=== PATIENT | male | born 1935 | race Hispanic/Latino ===

== ENCOUNTER 2017-05-22 06:15 | Day surgery (SDC) | payer MEDICARE ==
[~2017-05-22 06:15] MED LIST: ANCEF/STERILE WATER 2 GM/20 ML 2 GM/20 ML SYRINGE IV NR; NACL 0.9% 1000 ML 1,000 ML IV SCH
[2017-05-22 07:05] LABS: Basophils # (Auto) 0.1 K/mm3 (0.0-0.1); Basophils % (Auto) 0.9 % (0.0-1.8); Eosinophils # (Auto) 0.7 K/mm3 (0.0-0.4); Eosinophils % (Auto) 9.3 % (0.0-4.3); Hematocrit 36.4 % (35.5-45.6); Hemoglobin 11.7 gm/dl (11.8-15.2); Lymphocytes # (Auto) 1.5 K/mm3 (1.2-5.4); Lymphocytes % (Auto) 21.6 % (13.4-35.0); Mean Corpuscular HGB Conc 32 % (32-34); Mean Corpuscular Hemoglobin 26 pg (28-32); Mean Corpuscular Volume 81 fl (84-94); Monocytes # (Auto) 0.6 K/mm3 (0.0-0.8); Monocytes % (Auto) 8.5 % (0.0-7.3); Platelet Count 259 K/mm3 (140-440); Red Blood Count 4.49 M/mm3 (3.65-5.03); Red Cell Distribution Width 17.9 % (13.2-15.2)
[2017-05-22 07:16] LABS: INR 1.04 (0.87-1.13); Partial Thromboplastin Time 35.7 Sec. (24.2-36.6)
[2017-05-22 07:46] LABS: Calcium 8.9 mg/dL (8.4-10.2)
[2017-05-22] MEDS ORDERED: HALFPRIN EC PO ONE (10:30)
[2017-05-22] MEDS ORDERED: PLAVIX PO ONE (10:30)
[2017-05-22] MEDS ORDERED: HEPARIN/NS 5000 UNIT/500ML(CATH LAB) 1,500 ML IR ONE (12:24)
[2017-05-22] MEDS ORDERED: XYLOCAINE 2% INFILTRATI ONE (12:25)
[2017-05-22] MEDS ORDERED: ANCEF/STERILE WATER 2 GM/20 ML 2 GM/20 ML SYRINGE IV ONE (12:25)
[2017-05-22] MEDS ORDERED: NACL 0.9% 1000 ML 0 ML ONE (12:25)
[2017-05-22] MEDS: SUBLIMAZE ONE ×6 (12:42→14:37)
[2017-05-22] MEDS: VERSED ONE ×6 (12:42→14:37)
[2017-05-22] MEDS: HEPARIN 10,000 UNITS/10 ML ONE ×2 (13:01→13:49)
[2017-05-22] MEDS ORDERED: NACL 0.9% 500 ML 500 ML ONE (13:17)
[2017-05-22] MEDS ORDERED: HEPARIN/NS 5000 UNIT/500ML(CATH LAB) 500 ML IR ONE (13:33)
[2017-05-22 16:40] VITALS: BP 115/59
--- NOTE | 2017-05-22 17:09 | Short Stay Summary ---
Short Stay Documentation Date of service: 05/22/17 Narrative H&P: 81 year old male with rest pain at night with ischemia of the right foot. - History Principal diagnosis: rest pain with PVD H&P: obtained from office - Allergies and Medications Current Medications: Allergies Tbokser-Jgx-Hke Reductase Inhibitor Adverse Reaction (Intermediate, Unverified 05/22/17 06:27) Rash Home Medications Medication Instructions Recorded Confirmed Last Taken Type Apixaban [Eliquis] 5 mg PO DAILY 05/22/17 05/22/17 05/19/17 History Aspirin [Aspirin EC] 325 mg PO QDAY 05/22/17 05/22/17 05/19/17 History Citalopram [celeXA] 10 mg PO DAILY 05/22/17 05/22/17 05/21/17 History Clopidogrel Bisulfate [Clopidogrel] 75 mg PO QDAY 05/22/17 05/22/17 05/19/17 History Donepezil [Aricept] 5 mg PO HS 05/22/17 05/22/17 05/21/17 History Finasteride [Proscar] 5 mg PO QDAY 05/22/17 05/22/17 05/21/17 History Gabapentin [Neurontin] 600 mg PO TID 05/22/17 05/22/17 05/21/17 History Gabapentin [Neurontin] 600 mg PO TID 05/22/17 05/22/17 05/21/17 History Insulin Aspart [NovoLOG 100 4 - 10 units SC TIDAC 05/22/17 05/22/17 Unknown History UNITS/ML VIAL] Insulin Glargine [Lantus VIAL] 10 units SQ QHS 05/22/17 05/22/17 05/21/17 History Metoprolol Succinate [Toprol Xl] 25 mg PO QDAY 05/22/17 05/22/17 05/21/17 History Tamsulosin [Flomax] 0.4 mg PO HS 05/22/17 05/22/17 05/21/17 History glyBURIDE [Glyburide] 5 mg PO DAILY 05/22/17 05/22/17 05/21/17 History traMADol [Ultram] 50 mg PO Q8H PRN 05/22/17 05/22/17 Unknown History Active Medications Cefazolin Sodium (Ancef/Sterile Water 2 Gm/20 Ml) 2 gm in 20 mls @ 80 mls/hr IV PREOP NR; Protocol Stop: 05/22/17 23:59 Sodium Chloride (Nacl 0.9% 1000 Ml) 1,000 mls @ 42 mls/hr IV DIRECT JOSE Stop: 05/22/17 23:59 Last Admin: 05/22/17 07:00 Dose: 258 mls/hr - Physical exam General appearance: mild distress (right foot discomfort) Lungs: Normal air movement Extremities: no pulses intact, normal temperature, normal color - Brief post op/procedure progress note Date of procedure: 05/22/17 Pre-op diagnosis: PVD with rest pain Post-op diagnosis: same Procedure: Revasc of the RLE Anesthesia: local (w/ conscious sedation) Surgeon: BENIGNO RICARDO Estimated blood loss: minimal Condition: stable - Hospital course Hospital course: Ready for discharge in 2 hrs. Keep pressure dressing on. Will remove at nursing facility. Tolerated procedure well. - Disposition Condition at discharge: Stable Disposition: DC/[place]-03 SNF [facility] CERT - Discharge Diagnoses (1) PVD (peripheral vascular disease) Status: Acute Short Stay Discharge Plan Activity: advance as tolerated Weight Bearing Status: Weight Bear as Tolerated Diet: diabetic Special Instructions: other (continue asprin and plavix ; resume eliquis on 05/24 ; remove pressure dressing on 05/23/17 in AM) Follow up with: EDUARDO MONTELONGO MD [Primary Care Provider] - 7 Days Forms: Post Arteriogram Instruct
--- NOTE | 2017-05-22 17:35 | Operative Report ---
Operative Report Operative Report: EXAM: 1. Ultrasound-guided access of the left common femoral artery 2. Angiography of the left lower extremity 3. Selection of the abdominal aorta with aortography 4. Selection of the right external iliac artery with angiography of the right lower extremity 5. Selection of the right superficial femoral artery and popliteal artery with angiography of the right lower extremity 6. Fluoroscopic guided deployment of a 5 mm spider embolic protection device in the right popliteal artery 7. Atherectomy of the right superficial femoral artery with a LXM Turbohawk 8. Angioplasty of the right superficial femoral artery with a 5 mm x 220 mm angioplasty balloon 9. Angioplasty of the distal right superficial femoral artery with a 5 mm x 120 mm INPACT DCB 10. Angioplasty of the middle and proximal right superficial femoral artery with a 6 mm x 150 mm INPACT DCB 11. Stenting of the right proximal superficial femoral artery with a 7 mm x 100 mm Tigris self expanding stent 12. Stenting of the right distal superficial femoral artery with a 6 mm x 100 mm Tigris self expanding stent 13. Postdilatation of the stents with a 6 mm x 100 mm angioplasty balloon. 14. Closure of the left common femoral artery arteriotomy with a 6/7 Fr MYNX device DATE: 05/22/17 FIELD ENUMERATOR: BENIGNO RICARDO MD INDICATION: Critical limb ischemia of the right lower extremity with rest pain and LI of 0.23 with intermittent ischemic changes of the right forefoot. MEDICATIONS: Please see nursing report for full details. DEVICES: 5 mm x 220 mm angioplasty balloon 6 mm x 100 mm angioplasty balloon 6 mm x 100 mm Tigris self expanding stent 7 mm x 100 mm Tigris self expanding stent 5 mm x 120 mm INPACT DCB 6 mm x 150 mm INPACT DCB (x 2) LXM Turbohawk 5 mm SPIDER EPD 6/7 Fr MYNX device CONTRAST: 80 mL of nonionic contrast PROCEDURE: The risks, benefits, and alternatives were discussed with the patient and his daughter; written informed consent was obtained. The groins were prepped and draped in a sterile fashion. The left common femoral artery was evaluated with ultrasound and was patent. Under direct ultrasound guidance, the left common femoral artery was accessed with a 21- gauge micro-puncture needle. 0.018 inch wire was passed through the needle into the aorta. Needle was exchanged for transitional dilator. Wire was exchanged for 0.035 inch wire. Transitional dilator was exchanged for a 5 Bangladeshi sheath. Digital subtraction angiography was performed demonstrating multifocal mild narrowings of the left common femoral artery. The puncture was appropriate, above the bifurcation below the inferior epigastric artery. There is a 50% narrowing in the left proximal superficial femoral artery. The left profunda femoral artery is patent. Flush catheter was passed into the abdominal aorta. Digital subtraction angiography was performed demonstrating patency of the abdominal aorta with tandem 30% narrowings in the left common iliac artery and a 50% narrowing in the left external iliac artery. The right common iliac artery and external iliac artery are patent. The right external iliac artery was selected and digital subtraction angiography was performed demonstrating 30% narrowing in the distal right common femoral artery which is extremely long. There is a 30% narrowing in the right profunda femoral artery. The right superficial femoral artery is occluded a few centimeters after the ostium, with long segment in-stent occlusion, with reconstitution in the right above-knee popliteal artery. The above-knee popliteal artery is patent. The mid knee and xuwnu-bqk-xcsp popliteal artery has diffuse 20-30% narrowing throughout. There is a 50% narrowing in the right tibioperoneal trunk. The peroneal artery is the dominant flow to the foot and through the collaterals arising from it it supplies the distal anterior tibial artery and dorsalis pedis, and to the posterior communicating artery it supplies the plantar arteries. The posterior tibial artery is occluded throughout its course. The proximal and mid anterior tibial artery is occluded throughout its course. The patient was heparinized. Sheath was upsized and changed for a 7 Bangladeshi 45 cm Dutton destination positioned in the right distal common femoral artery. The lesion was crossed with angled catheter and wires. 5 mm spider embolic protection device was positioned in the right popliteal artery. The superficial femoral artery occlusion, both northway and in-stent, was treated with a LXM Turbohawk throughout its course. Afterwards, 5 mm angioplasty balloon was used to post-dilate the lesion. 5 mm drug-coated angioplasty balloon was used to perform angioplasty of the distal superficial femoral artery to the above-knee popliteal artery. 6 mm drug- coated angioplasty balloon was used perform angioplasty of the mid and proximal superficial femoral artery. Digital subtraction angiography demonstrated a dissection in the occlusion proximal to the stents and distal to the stents with minimal residual narrowing within the stented segments. Tigris self expanding stents were then deployed with a 7 mm by 100 mm stent deployed in the proximal right superficial femoral artery, and a 6 mm x 100 mm stent applied in the distal right superficial femoral artery. This was post dilated with a 6 mm angioplasty balloon both sites. Digital subtraction angiography demonstrated prompt flow through the superficial femoral artery with minimal residual narrowing. There is excellent flow to the popliteal artery and through the runoff. There is no distal embolization. There was a large amount of debris in the spider embolic protection device. 6 Bangladeshi MPA guide was used to retrieve the spider embolic protection device to prevent embolization. This was removed without issue. Digital subtraction angiography was performed demonstrating unchanged runoff with excellent technical result of the superficial femoral artery with minimal residual narrowing. Sheath was retracted to the left external iliac artery and then exchanged for 7 Bangladeshi standard sheath. Mynx device was then deployed achieving hemostasis. A pressure bandage was then applied. Patient tolerated the procedure well. No immediate postprocedure complication. FINDINGS: Please see procedure note above. IMPRESSION: 1. Successful atherectomy, angioplasty, and stenting of the right superficial femoral artery. 2. Successful ultrasound-guided access of the left common femoral artery. 3. Successful aortography with bilateral lower extremity angiography.
--- NOTE | 2017-05-22 17:39 | Vascular Lab Report ---
MISCELLANEOUS VESSEL IDENTIFICATION: COMMENTS ON THE SCAN: The left common femoral artery was identified and under real-time ultrasound guidance was cannulated. IMPRESSION: Successful ultrasound guided arterial cannulation.
== END 2017-05-22 17:15 ==
LOC: CATHLABREC 06:15
PROVIDERS: ATTEND Radiology Diagnostic Radiology
DX: I70.223 Atherosclerosis of native arteries of extremities with rest pain, bilateral legs (principal); E11.51 Type 2 diabetes mellitus with diabetic peripheral angiopathy without gangrene; I25.10 Atherosclerotic heart disease of native coronary artery without angina pectoris; K21.9 Gastro-esophageal reflux disease without esophagitis; M19.90 Unspecified osteoarthritis, unspecified site; Z95.1 Presence of aortocoronary bypass graft; Z88.8 Allergy status to other drugs, medicaments and biological substances; Z95.2 Presence of prosthetic heart valve; Z79.01 Long term (current) use of anticoagulants; Z95.820 Peripheral vascular angioplasty status with implants and grafts
CPT/HCPCS: 36415; 37227; 75710; 76937; 80048; 85025; 85610; 85730; 96360; 96361; 99156; 99157; C1714; C1725; C1760; C1769; C1874; C1884; C1887; C1894; J0690; J1644; J2250; J3010; J7030; J7040; Q9967

== ENCOUNTER 2018-03-11 06:17 | Day surgery (SDC) | payer MEDICARE ==
[~2018-03-11 06:17] MED LIST changes: -NACL 0.9% 1000 ML 1,000 ML IV SCH
[2018-03-11] MEDS: NACL 0.9% 1000 ML 1,000 ML IV SCH ×3 (07:00→09:25)
[2018-03-11 07:01] LABS: Basophils # (Auto) 0.1 K/mm3 (0.0-0.1); Eosinophils # (Auto) 0.6 K/mm3 (0.0-0.4); Eosinophils % (Auto) 8.3 % (0.0-4.3); Hematocrit 36.9 % (35.5-45.6); Hemoglobin 12.3 gm/dl (11.8-15.2); Lymphocytes # (Auto) 1.4 K/mm3 (1.2-5.4); Lymphocytes % (Auto) 18.4 % (13.4-35.0); Mean Corpuscular HGB Conc 33 % (32-34); Mean Corpuscular Volume 89 fl (84-94); Monocytes # (Auto) 0.7 K/mm3 (0.0-0.8); Monocytes % (Auto) 9.1 % (0.0-7.3); Platelet Count 224 K/mm3 (140-440); Red Blood Count 4.12 M/mm3 (3.65-5.03); Red Cell Distribution Width 15.1 % (13.2-15.2)
[2018-03-11 07:11] LABS: INR 1.04 (0.87-1.13); Partial Thromboplastin Time 28.4 Sec. (24.2-36.6)
[2018-03-11 08:06] LABS: Calcium 8.8 mg/dL (8.4-10.2)
[2018-03-11] MEDS ORDERED: HEPARIN 10,000 UNITS/10 ML ONE (08:09)
[2018-03-11] MEDS ORDERED: ANCEF/STERILE WATER 2 GM/20 ML 2 GM/20 ML SYRINGE IV ONE (08:09)
[2018-03-11] MEDS ORDERED: HEPARIN/NS 5000 UNIT/500ML(CATH LAB) 1,000 ML IR ONE (08:09)
[2018-03-11] MEDS ORDERED: XYLOCAINE 2% INFILTRATI ONE (08:10)
[2018-03-11] MEDS: VERSED ONE ×5 (09:29→10:25)
[2018-03-11] MEDS: SUBLIMAZE ONE ×6 (09:29→10:36)
[2018-03-11] MEDS ORDERED: ZOFRAN ONE (10:27)
[2018-03-11] MEDS ORDERED: VERSED ONE (10:36)
[2018-03-11] MEDS ORDERED: SUBLIMAZE ONE (10:36)
[2018-03-11] MEDS ORDERED: BABY ASPIRIN ONE (11:10)
--- NOTE | 2018-03-11 11:29 | Operative Report ---
Operative Report Operative Report: EXAM: 1. Ultrasound-guided access of the right common femoral artery. 2. CO2 angiography of the right lower extremity. 3. Selection of the abdominal aorta with CO2 angiography. 4. Selection of the left external iliac artery and common iliac artery with CO2 angiography. 5. Selection of the left common femoral artery and superficial femoral artery with CO2 angiography and angiography. 6. Selection of the left popliteal artery with angiography of the left lower extremity 7. Deployment of 5 mm spider embolic protection device a left popliteal artery. 8. Atherectomy of the left superficial femoral artery stent with a Hawkone LS device 9. Angioplasty of the left above the knee popliteal artery, distal superficial femoral artery and mid superficial femoral artery with a 5 mm x 150 mm angioplasty balloon 10. Angioplasty of the left zyalk-vqr-look popliteal artery and distal superficial femoral artery with a 5 mm x 150 mm iNPACT DCB 11. Angioplasty of the left mid and distal superficial femoral artery with a 6 mm x 150 mm iNPACT DCB 12. Closure of the right common femoral artery with a 6 Liberian Pro-glide DATE: 03/11/17 APPLICATION PACKAGING CONSULTANT: BENIGNO RICARDO MD INDICATION: 82-year-old male with severe peripheral vascular disease with prior right lower extremity threatened limb and prior bilateral lower extremity interventions who presents with worsening left lower extremity LI with a rapid decline. Given the prior threatened limb, occlusion would likely result in the left lower extremity threatened limb and therefore endovascular intervention was decided upon. Risks, benefits, and alternatives discussed. MEDICATIONS: Please see nursing report for full details. DEVICES: 5 mm spider embolic protection device 5 mm x 150 mm 0.018 inch angioplasty balloon Hawkone LS 5 mm x 150 mm iNPACT DCB 6 mm x 150 mm iNPACT DCB CONTRAST: 30 mL nonionic contrast and CO2 PROCEDURE: The risks, benefits, and alternatives were discussed the patient and his daughter; written informed consent was obtained. The patient's groins were prepped and draped in sterile fashion. Under direct ultrasound guidance, the right common femoral artery was accessed with a 21- gauge micropuncture needle. 0.018 inch wire was passed into the aorta. Needle was exchanged for transitional dilator. Wire was exchanged for 0.035 inch wire. Transitional dilators exchange for 5 Liberian sheath. CO2 angiography was performed demonstrating an appropriate puncture, above the bifurcation below the inferior epigastric artery. There was mild atherosclerotic disease in the right common femoral artery. The right common femoral artery was very long and the profunda femoral artery and superficial femoral artery were not well visualized. The right external iliac artery had some mild atherosclerotic disease. The abdominal aorta was selected and CO2 angiography was performed demonstrating mild atherosclerotic disease is multifocal in the bilateral common iliac arteries, bilateral external iliac arteries, and the infrarenal abdominal aorta. The left external iliac artery and common femoral artery was selected and CO2 angiography demonstrated patency of the left common femoral artery. The left profunda femoral artery had less than 20% stenosis. The left proximal superficial femoral artery had 40% narrowing. Superficial femoral artery was selected and CO2 angiography was performed demonstrating 50% narrowing in the mid superficial femoral artery, 99% narrowing in the mid to distal superficial femoral artery, and 50% narrowing in the svuwh-wub-oybp popliteal artery. The severe narrowing was within an area of in-stent restenosis. The mid popliteal artery was patent. The anterior tibial artery had severe narrowing measuring approximately 70-80% in the proximal 10 cm. The tibial peroneal trunk was occluded. After the proximal vessels, the rest of the tibial were patent. The patient was heparinized. 7 Liberian 45 cm Hodges destination sheath was passed into the left proximal superficial femoral artery. 5 mm spider embolic protection device was deployed in the left popliteal artery. [employer] LS device was used to perform atherectomy at the area of 99% narrowing and 50% narrowing. The quvgj-vqb-pklr popliteal artery could not be accessed with the atherectomy device. 5 mm x 150 mm Juan angioplasty balloon was used to predilate the popliteal artery and the distal and mid superficial femoral artery. Subsequently, 5 mm x 150 mm DCB was used to perform angioplasty of the goznp-kox-lbjg popliteal artery and the distal superficial femoral artery. 6 mm x 150 mm DCB was used to perform angioplasty of the distal and mid superficial femoral artery. Digital subtraction angiography was performed demonstrating 40% narrowing of the left proximal superficial femoral artery with less than 10% residual narrowing of the rest of the superficial femoral artery with 20% residual narrowing of the rttjg-inj-geyf popliteal artery. There is a small amount of debris within the spider embolic protection device. The spider about protection device was retrieved. Digital subtraction angiography was performed demonstrating no embolization. The runoff was unchanged. Sheath was retracted and digital subtraction angiography demonstrated no high-grade lesions in the left external iliac artery or common femoral artery. Sheath was then retracted to the right external iliac artery and a wire was passed into the abdominal aorta. Sheath was exchanged for 6 Liberian Pro-glide which was used to close the arteriotomy achieving near immediate hemostasis. Sterile dressing applied. Patient tolerated procedure well. No immediate postprocedural complication. Pressure dressing applied. Impression: 1. Successful atherectomy and angioplasty of the left superficial femoral artery and popliteal artery with drug-coated balloon. 2. Successful angiography of the bilateral lower extremities abdominal aorta. 3. Successful ultrasound-guided access of the right common femoral artery and closure of the right common femoral artery.
--- NOTE | 2018-03-11 11:29 | Short Stay Summary ---
Short Stay Documentation Date of service: 03/11/18 Narrative H&P: 82 year old male with PVD with prior threatened right lower extremity with significant decline in LI of the left lower extremity with history of left lower extremity stents. To prevent occlusion and threatneed left lower extremity, endovascular intervention will be performed. R/B/A discussed. - History Principal diagnosis: PVD H&P: obtained from office Past Medical History: other (PVD) Past Surgical History: Other (prior endovascular interventions) Social history: other (penitentiary) - Allergies and Medications Current Medications: Allergies Doqsarw-Wnp-Dsp Reductase Inhibitor Allergy (Intermediate, Unverified 03/10/18 16:05) Rash Home Medications Medication Instructions Recorded Confirmed Last Taken Type Apixaban [Eliquis] 5 mg PO DAILY 05/22/17 03/11/18 03/09/18 History Aspirin [Aspirin EC] 81 mg PO QDAY 05/22/17 03/11/18 03/09/18 History Citalopram [celeXA] 10 mg PO DAILY 05/22/17 03/11/18 03/10/18 History Donepezil [Aricept] 5 mg PO HS 05/22/17 03/11/18 03/10/18 History Finasteride [Proscar] 5 mg PO QDAY 05/22/17 03/11/18 03/10/18 History Gabapentin [Neurontin] 600 mg PO TID 05/22/17 03/11/18 05/21/17 History Gabapentin [Neurontin] 600 mg PO TID 05/22/17 03/11/18 03/10/18 History Insulin Aspart [NovoLOG 100 4 - 10 units SC TIDAC 05/22/17 03/11/18 Unknown History UNITS/ML VIAL] Insulin Glargine [Lantus VIAL] 15 units SQ QHS 05/22/17 03/11/18 03/10/18 History Metoprolol Succinate [Toprol Xl] 25 mg PO QDAY 05/22/17 03/11/18 03/10/18 History Tamsulosin [Flomax] 0.4 mg PO HS 05/22/17 03/11/18 03/10/18 History glyBURIDE [Glyburide] 5 mg PO DAILY 05/22/17 03/11/18 03/10/18 History traMADol [Ultram] 50 mg PO Q8H PRN 05/22/17 03/11/18 Unknown History Loratadine [Claritin] 10 mg PO DAILY 03/11/18 03/11/18 03/10/18 History Olopatadine HCl [Patanol 0.1%] 1 drop OP BID 03/11/18 03/11/18 03/10/18 History Torsemide [Demadex] 20 mg PO DAILY 03/11/18 03/11/18 03/10/18 History Active Medications Cefazolin Sodium (Ancef/Sterile Water 2 Gm/20 Ml) 2 gm in 20 mls @ 80 mls/hr IV PREOP NR; Protocol Stop: 03/11/18 23:01 Sodium Chloride (Nacl 0.9% 1000 Ml) 1,000 mls @ 42 mls/hr IV DIRECT JOSE Last Admin: 03/11/18 09:25 Dose: 42 mls/hr Documented by: - Physical exam General appearance: no acute distress Lungs: Normal air movement Gastrointestinal: normal Extremities: normal temperature, normal color - Brief post op/procedure progress note Date of procedure: 03/11/18 Pre-op diagnosis: Left lower extremity PVD with severe restenosis Post-op diagnosis: same Procedure: Left femoral-popliteal atherectomy and DCB angioplasty Anesthesia: local (w/ conscious sedation) Surgeon: BENIGNO RICARDO Estimated blood loss: minimal Condition: stable - Hospital course Hospital course: Tolerated procedure well. 4 hrs hold time, then can be discharged. - Disposition Condition at discharge: Stable Disposition: DC/[place]-03 SNF [facility] CERT - Discharge Diagnoses (1) PVD (peripheral vascular disease) Status: Acute Short Stay Discharge Plan Activity: advance as tolerated Weight Bearing Status: Weight Bear as Tolerated Diet: regular Wound: keep clean and dry, other (TAKE OFF RIGHT GROIN PRESSURE DRESSING ON 03/12/17 AM) Special Instructions: other (RESTART ELIQUIS ON 03/13/18 ; RESTART ASPIRIN ON 03/12/18) Follow up with: EDUARDO MONTELONGO MD [Primary Care Provider] - 7 Days
[2018-03-11 16:03] VITALS: BP 130/53
== END 2018-03-11 15:58 ==
LOC: CATHLABREC 06:17
PROVIDERS: ATTEND Radiology Diagnostic Radiology
DX: I70.292 Other atherosclerosis of native arteries of extremities, left leg (principal); E11.22 Type 2 diabetes mellitus with diabetic chronic kidney disease; I12.0 Hypertensive chronic kidney disease with stage 5 chronic kidney disease or end stage renal disease; N18.2 Chronic kidney disease, stage 2 (mild); I25.10 Atherosclerotic heart disease of native coronary artery without angina pectoris; K21.9 Gastro-esophageal reflux disease without esophagitis; M19.90 Unspecified osteoarthritis, unspecified site; F03.90 Unspecified dementia, unspecified severity, without behavioral disturbance, psychotic disturbance, mood disturbance, and anxiety; I48.91 Unspecified atrial fibrillation; J44.9 Chronic obstructive pulmonary disease, unspecified; E78.00 Pure hypercholesterolemia, unspecified; F32.9 Major depressive disorder, single episode, unspecified; G47.30 Sleep apnea, unspecified; Z79.82 Long term (current) use of aspirin; Z79.899 Other long term (current) drug therapy; Z79.01 Long term (current) use of anticoagulants; Z79.4 Long term (current) use of insulin; Z88.8 Allergy status to other drugs, medicaments and biological substances; Z72.89 Other problems related to lifestyle; Z95.810 Presence of automatic (implantable) cardiac defibrillator; Z87.891 Personal history of nicotine dependence; Z86.73 Personal history of transient ischemic attack (TIA), and cerebral infarction without residual deficits; Z98.890 Other specified postprocedural states; Z80.9 Family history of malignant neoplasm, unspecified; Z83.3 Family history of diabetes mellitus
CPT/HCPCS: 36415; 37225; 75625; 75716; 80048; 85025; 85610; 85730; C1714; C1725; C1760; C1769; C1887; C2623; J0690; J1644; J2250; J2405; J3010; J7030; 75726; 76937; Q9967

== ENCOUNTER 2018-04-30 08:54 | Day surgery (SDC) | payer MEDICARE ==
[2018-04-30 11:04] LABS: Basophils # (Auto) 0.1 K/mm3 (0.0-0.1); Eosinophils # (Auto) 0.5 K/mm3 (0.0-0.4); Eosinophils % (Auto) 8.9 % (0.0-4.3); Hematocrit 36.6 % (35.5-45.6); Hemoglobin 12.2 gm/dl (11.8-15.2); Lymphocytes # (Auto) 1.2 K/mm3 (1.2-5.4); Lymphocytes % (Auto) 20.1 % (13.4-35.0); Mean Corpuscular HGB Conc 34 % (32-34); Mean Corpuscular Volume 87 fl (84-94); Monocytes # (Auto) 0.5 K/mm3 (0.0-0.8); Monocytes % (Auto) 7.6 % (0.0-7.3); Platelet Count 181 K/mm3 (140-440); Red Blood Count 4.22 M/mm3 (3.65-5.03); Red Cell Distribution Width 15.2 % (13.2-15.2)
[2018-04-30 11:15] LABS: Calcium 8.9 mg/dL (8.4-10.2)
[2018-04-30 11:17] LABS: INR 1.35 (0.87-1.13)
[2018-04-30 11:18] LABS: Partial Thromboplastin Time 40.2 Sec. (24.2-36.6)
[2018-04-30] MEDS: NACL 0.9% 1000 ML 1,000 ML IV SCH ×2 (11:49→15:38)
[2018-04-30] MEDS ORDERED: ANCEF/STERILE WATER 2 GM/20 ML 2 GM/20 ML SYRINGE IV ONE (15:00)
[2018-04-30] MEDS ORDERED: HEPARIN/NS 5000 UNIT/500ML(CATH LAB) 1,000 ML IR ONE (15:00)
[2018-04-30] MEDS ORDERED: NACL 0.9% 500 ML 0 ML ONE (15:00)
[2018-04-30] MEDS ORDERED: VERSED ONE (15:01)
[2018-04-30] MEDS ORDERED: SUBLIMAZE ONE (15:01)
[2018-04-30] MEDS ORDERED: NITROGLYCERIN SYRINGE 3 ML ONE (15:31)
[2018-04-30] MEDS ORDERED: CALAN ONE (15:31)
[2018-04-30] MEDS ORDERED: XYLOCAINE 2% INFILTRATI ONE (15:44)
[2018-04-30] MEDS: HEPARIN 10,000 UNITS/10 ML ONE ×2 (15:58→16:06)
[2018-04-30 17:42] VITALS: BP 130/53
--- NOTE | 2018-04-30 17:59 | Short Stay Summary ---
Short Stay Documentation Date of service: 04/30/18 Narrative H&P: 82 year old male with PVD and abnormal arterial studies with prior CLI. - History Principal diagnosis: Bilateral foot pain H&P: obtained from office - Allergies and Medications Current Medications: Allergies Noottfi-Hna-Oxj Reductase Inhibitor Allergy (Intermediate, Verified 04/30/18 12:05) Rash Home Medications Medication Instructions Recorded Confirmed Last Taken Type Apixaban [Eliquis] 5 mg PO DAILY 05/22/17 04/30/18 04/29/18 History 5mg Aspirin [Aspirin EC] 81 mg PO QDAY 05/22/17 04/30/18 04/29/18 History 81mg Citalopram [celeXA] 10 mg PO DAILY 05/22/17 04/30/18 04/29/18 History 10mg Donepezil [Aricept] 5 mg PO HS 05/22/17 04/30/18 04/29/18 History 5mg Finasteride [Proscar] 5 mg PO QDAY 05/22/17 04/30/18 04/29/18 History 5mg Gabapentin [Neurontin] 600 mg PO TID 05/22/17 04/30/18 04/29/18 History 600mg Insulin Aspart [NovoLOG 100 4 - 10 units SC TIDAC 05/22/17 04/30/18 04/29/18 History UNITS/ML VIAL] 4 Insulin Glargine [Lantus VIAL] 15 units SQ QHS 05/22/17 04/30/18 04/29/18 History 15 units Metoprolol Succinate [Toprol Xl] 25 mg PO QDAY 05/22/17 04/30/18 04/29/18 History 25mg Tamsulosin [Flomax] 0.4 mg PO HS 05/22/17 04/30/18 04/29/18 History 0.4mg glyBURIDE [Glyburide] 5 mg PO DAILY 05/22/17 04/30/18 04/29/18 History 5mg traMADol [Ultram] 50 mg PO Q8H PRN 05/22/17 04/30/18 04/29/18 History 50mg Loratadine [Claritin] 10 mg PO DAILY 03/11/18 04/30/18 04/29/18 History 10mg Olopatadine HCl [Patanol 0.1%] 1 drop OP BID 03/11/18 04/30/18 04/29/18 History 1 Torsemide [Demadex] 20 mg PO DAILY 03/11/18 04/30/18 04/29/18 History 20mg Active Medications Cefazolin Sodium (Ancef/Sterile Water 2 Gm/20 Ml) 2 gm in 20 mls @ 80 mls/hr IV PREOP NR; Protocol Stop: 04/30/18 23:59 Last Admin: 04/30/18 15:44 Dose: 20 mls Documented by: Sodium Chloride (Nacl 0.9% 1000 Ml) 1,000 mls @ 42 mls/hr IV DIRECT JOSE Last Admin: 04/30/18 15:38 Dose: 42 mls/hr Documented by: - Physical exam General appearance: no acute distress Lungs: Normal air movement Gastrointestinal: normal Extremities: no pulses intact, normal temperature, normal color - Brief post op/procedure progress note Date of procedure: 04/30/18 Pre-op diagnosis: Bilateral foot pain with PVD and abnormal arterial study Post-op diagnosis: same Procedure: Diagnostic angiogram Anesthesia: local (w/ conscious sedation) Surgeon: BENIGNO RICARDO Estimated blood loss: minimal Condition: stable - Hospital course Hospital course: Tolerated procedure well. Ready for discharge. - Disposition Condition at discharge: Stable Disposition: DC-01 TO HOME OR SELFCARE - Discharge Diagnoses (1) Foot pain, bilateral Status: Acute (2) PVD (peripheral vascular disease) Status: Acute Short Stay Discharge Plan Activity: advance as tolerated Weight Bearing Status: Partial Weight Bearing (do not lift more than 10 lb with left hand for 1 week) Diet: regular Wound: keep clean and dry Additional Instructions: Restart Eliquis in 2 Days( Thursday) Start Trental 400mg twice daily Follow up with: EDUARDO MONTELONGO MD [Primary Care Provider] - 7 Days
--- NOTE | 2018-04-30 18:06 | Operative Report ---
Operative Report Operative Report: EXAM: 1. Ultrasound-guided access of the left radial artery. 2. Selection of the abdominal aorta with angiography and CO2 angiography. 3. Third order selection of the right superficial femoral artery with angiography of the right lower extremity. 4. Third order selection of the left superficial femoral artery with angiography of the left lower extremity DATE: 04/30/18 [facility] DEVELOPER: BENIGNO RICARDO MD INDICATION: 82-year-old male with bilateral foot pain, PVD, ABIs that have declined and history of rest pain who presents for diagnostic angiogram. He is status post multiple endovascular procedures. MEDICATIONS: Please see nursing report for full details. CONTRAST: 36 mL's nonionic contrast PROCEDURE: The risks, benefits, and alternatives were discussed the patient and his daughter; written informed consent was obtained. The left wrist was prepped and draped in a sterile fashion. The left radial artery was patent on ultrasound. Under direct ultrasound guidance, the left radial artery was accessed with a 21-gauge micro-puncture needle. 0.018 inch wire was passed into the radial artery. Needle was exchanged for 5/6 [place] slender. Radial cocktail was administered and additional heparin was administered. The descending thoracic aorta was selected with a pigtail catheter and then the abdominal aorta was selected. The infrarenal abdominal aorta was selected. CO2 angiography was performed but the images were suboptimal. Digital subtraction angiography was performed. The right superficial femoral artery was then selected with an angled catheter. Digital subtraction angiography was performed of the right lower extremity with runoff. Catheter was then retracted to the right common femoral artery and iliac arteries and digital subtraction angiography was performed. Digital subtraction angiography was performed with only 2 mL's of contrast at each station. The left superficial femoral artery was then selected with an angled catheter. Digital subtraction angiography was performed of the left lower extremity with runoff. Catheter was then retracted to the left common femoral artery and iliac arteries and digital subtraction angiography was performed. Digital subtraction angiography was performed with only 2 mL's of contrast at each station. All wires, catheters, and sheaths were removed. Pressure bandage applied. Patient tolerated the procedure well. No immediate postprocedural complication. FINDINGS: AORTA: 10%-20% narrowing of the infrarenal abdominal aorta. RIGHT LOWER EXTREMITY: The right common iliac artery has a 30-40% narrowing which is multifocal. The right external iliac artery has a 40% narrowing which is multifocal. The internal iliac artery is 60% narrowed at multifocal locations. The profundofemoral artery is patent. The common femoral artery has 10-20% narrowing. The right proximal superficial femoral artery is patent. The right mid superficial femoral artery stent has 20% residual narrowing. The distal superficial femoral artery is patent. The above the knee popliteal artery is patent. The rest of the popliteal artery is patent. 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 The peroneal artery is patent. Anterior and posterior tibial artery are occluded with reconstitution of the dorsalis pedis and plantar arteries from the anterior and posterior communicating arteries which are quite hypertrophic. LEFT LOWER EXTREMITY: The left common iliac artery has 40 residual narrowing. The left external iliac artery has 40% narrowing. The left internal iliac artery has 70% narrowing. The left profundofemoral artery is patent. The left common femoral artery has 10-20% residual narrowing. The left proximal superficial femoral artery has 10% residual narrowing. The left mid superficial femoral artery stent has 10-20% residual narrowing. The distal superficial femoral artery is patent. The popliteal artery is patent. There is extensive tibial disease consisting of occlusion of the proximal tibioperoneal trunk with reconstitution of the peroneal artery which is quite large. The posterior tibial artery is quite atretic. The anterior tibial artery has multifocal 90% narrowing in the proximal portion of the vessel. The mid and distal portions of the anterior tibial artery are quite robust and patent. The peroneal artery and the anterior tibial artery providing flow into the foot through a large posterior communicating artery and a robust dorsalis pedis. The posterior tibial artery is occluded at the mid and distal portion. IMPRESSION: 1. Successful bilateral third order selection of the lower extremities with diagnostic angiography. Since the patient is not ambulatory and without critical limb ischemia at this time, I do not recommend tibial reconstruction unless his symptoms change. Con tinue to monitor with noninvasive arterial imaging.
== END 2018-04-30 18:30 | disposition home or self-care (01) ==
LOC: CATHLABREC 08:54
PROVIDERS: ATTEND Radiology Diagnostic Radiology
DX: I70.221 Atherosclerosis of native arteries of extremities with rest pain, right leg (principal); I11.0 Hypertensive heart disease with heart failure; I50.9 Heart failure, unspecified; I25.10 Atherosclerotic heart disease of native coronary artery without angina pectoris; E11.42 Type 2 diabetes mellitus with diabetic polyneuropathy; E11.51 Type 2 diabetes mellitus with diabetic peripheral angiopathy without gangrene; I48.91 Unspecified atrial fibrillation; J44.9 Chronic obstructive pulmonary disease, unspecified; G47.30 Sleep apnea, unspecified; K21.9 Gastro-esophageal reflux disease without esophagitis; F32.9 Major depressive disorder, single episode, unspecified; Z98.890 Other specified postprocedural states; Z79.4 Long term (current) use of insulin; Z79.899 Other long term (current) drug therapy; Z87.891 Personal history of nicotine dependence; Z95.1 Presence of aortocoronary bypass graft; Z88.8 Allergy status to other drugs, medicaments and biological substances; Z86.73 Personal history of transient ischemic attack (TIA), and cerebral infarction without residual deficits
CPT/HCPCS: 36247; 36415; 75625; 75716; 76937; 80048; 85025; 85610; 85730; 99156; 99157; C1769; C1887; C1894; J0690; J1644; J2250; J3010; J7030; J7040; Q9967

== ENCOUNTER 2018-11-23 07:25 | Day surgery (SDC) | payer MEDICARE ==
[2018-11-23 07:56] VITALS: BP 136/70
[2018-11-23] MEDS ORDERED: NACL 0.9% 500 ML 500 ML IV SCH (08:00)
[2018-11-23 08:11] LABS: Hematocrit 38.2 % (35.5-45.6); Hemoglobin 12.8 gm/dl (11.8-15.2); Mean Corpuscular HGB Conc 34 % (32-34); Mean Corpuscular Volume 89 fl (84-94); Platelet Count 178 K/mm3 (140-440); Red Cell Distribution Width 15.9 % (13.2-15.2)
[2018-11-23 08:22] LABS: INR 1.38 (0.87-1.13)
[2018-11-23 08:23] LABS: Partial Thromboplastin Time 40.7 Sec. (24.2-36.6)
== END 2018-11-23 09:35 | disposition home or self-care (01) ==
LOC: CATHLABREC 07:25
PROVIDERS: ATTEND Radiology Diagnostic Radiology
DX: I70.221 Atherosclerosis of native arteries of extremities with rest pain, right leg (principal); I11.0 Hypertensive heart disease with heart failure; I50.9 Heart failure, unspecified; I25.10 Atherosclerotic heart disease of native coronary artery without angina pectoris; E78.00 Pure hypercholesterolemia, unspecified; I48.91 Unspecified atrial fibrillation; J44.9 Chronic obstructive pulmonary disease, unspecified; G47.30 Sleep apnea, unspecified; K21.9 Gastro-esophageal reflux disease without esophagitis; F32.9 Major depressive disorder, single episode, unspecified; E11.42 Type 2 diabetes mellitus with diabetic polyneuropathy; E11.51 Type 2 diabetes mellitus with diabetic peripheral angiopathy without gangrene; G62.9 Polyneuropathy, unspecified; Z53.8 Procedure and treatment not carried out for other reasons; Z79.899 Other long term (current) drug therapy; Z88.8 Allergy status to other drugs, medicaments and biological substances; Z79.82 Long term (current) use of aspirin; Z79.4 Long term (current) use of insulin; Z87.891 Personal history of nicotine dependence; Z95.1 Presence of aortocoronary bypass graft; Z98.890 Other specified postprocedural states; Z86.73 Personal history of transient ischemic attack (TIA), and cerebral infarction without residual deficits
CPT/HCPCS: 36415; 80048; 85027; 85610; 85730; J7040